=== PATIENT | female | born 1955 | race Caucasian/White ===

== ENCOUNTER 2016-09-06 11:19 | Outpatient (CLI) | payer OTHER ==
--- NOTE | 2016-09-06 11:53 | DIAGNOSTIC IMAGING REPORT ---
PROCEDURE: MG BILATERAL SCREENING W/CAD INDICATION: SCREENING TECHNIQUE: Bilateral CC and MLO digital views. COMPARISON: Compared to 01/20/2014, 02/06/2011, and 04/18/2009. FINDINGS: Computer-aided detection applied. Mildly dense parenchymal pattern. There is a 6 mm stellate asymmetry in the left central breast. The rest of the breasts are unchanged. IMPRESSION: 1. There is a 6 mm stellate density in the left upper central breast (1200 position, posterior third). While this may represent normal asymmetric tissue, further mammographic views are recommended (including true lateral view, CC and MLO spot compression views). Depending on these further views, ultrasound may be indicated. RESULT CODE: 0- Incomplete; needs additional evaluation. A. A negative report should not delay biopsy if a dominant or clinically suspicious mass is present. 10-15% of cancers are not identified by x-ray. B. A negative report may reinforce clinical impression. C. Adenosis and dense breasts may obscure an underlying neoplasm. D. False positive reports average 6-10%. E.. A yearly screening mammogram is recommended. A reminder letter will be scheduled.
== END 2016-09-06 23:00 | disposition home or self-care (01) ==
LOC: MAM SRH 11:19
DX: Z12.31 Encounter for screening mammogram for malignant neoplasm of breast (principal)

== ENCOUNTER → 2016-09-12 | Outpatient (CLI) | payer OTHER ==
--- NOTE | 2016-09-12 14:20 | DIAGNOSTIC IMAGING REPORT ---
PROCEDURE: MG UNILATERAL DIAG-LT W/CAD INDICATION: F/U ABN SHAKILA TECHNIQUE: True lateral digital view of the left breast. In addition, spot compression CC and MLO views were obtained of the upper central left breast ( region of clinical concern). Study supervised by Dr. Rojas. COMPARISON: Comparison made to screening mammogram studies on 09/06/2016, 01/20/2014, and 02/06/2011. FINDINGS: MAMMOGRAM: Computer-aided detection applied. Mildly dense parenchymal pattern. The 6 mm density in the left central breast compresses normally and is consistent with normal parenchyma. There is a small 4 mm intramammary lymph node in the upper outer left breast (incidental finding). There is no evidence of underlying abnormality. Left breast ultrasound is not indicated at this time. IMPRESSION: 1. Negative mammogram with normal parenchyma in the central left breast. 2. Resume routine screening schedule (August 2017). RESULT CODE: 1- Negative. A. A negative report should not delay biopsy if a dominant or clinically suspicious mass is present. 10-15% of cancers are not identified by x-ray. B. A negative report may reinforce clinical impression. C. Adenosis and dense breasts may obscure an underlying neoplasm. D. False positive reports average 6-10%. E.. A yearly screening mammogram is recommended. A reminder letter will be scheduled.
== END ==
LOC: MAM SRH 09-11 08:51
DX: R92.8 Other abnormal and inconclusive findings on diagnostic imaging of breast (principal)